=== PATIENT | male | born 1955 | race Two or more races ===

== ENCOUNTER 2024-06-16 13:33 | Emergency (ER) | payer OTHER, SELFPAY ==
[2024-06-16 13:44] VITALS: BP 126/94; PULSE 85; RESP 16; TEMP 36.4; O2SAT 97
--- NOTE | 2024-06-16 13:52 | PD.EDHAND ---
Upper Extremity Injury RME/HPI General Chief Complaint: Hand/Wrist Problems Stated Complaint: left 3rd digit swollen, red Time Seen by Provider: 06/16/24 13:35 Arrival date/time: 06/16/24 13:33 69-year-old male presents the emergency department complains of left hand pain patient reports he suffers from carpal tunnel and does have a follow-up appoint with specialist patient reports no redness or swelling no warmth Limitations: no limitations Related Data Home Medications ?Medication ?Instructions ?Recorded ?Confirmed cetirizine 10 mg capsule (Zyrtec) 10 mg PO QDAY 06/15/19 12/27/23 fluticasone propionate 50 2 spray intranasal QDAY 06/15/19 12/27/23 mcg/actuation nasal spray,suspension (Flonase Allergy Relief) levothyroxine 100 mcg tablet 100 mcg PO QDAY 06/15/19 12/27/23 lisinopril 10 mg tablet 10 mg PO QDAY 06/15/19 12/27/23 metformin 500 mg tablet 500 mg PO QDAY 06/15/19 12/27/23 Previous Rx's ?Medication ?Instructions ?Recorded hydrocodone 5 mg-acetaminophen 325 1 tab PO BID PRN pain #14 tabs 06/16/24 mg tablet Allergies Allergy/AdvReac Type Severity Reaction Status Date / Time aspirin AdvReac Intermediate Gastrointestinal Verified 06/16/24 13:35 Upset meperidine [From Demerol] AdvReac Intermediate Gastrointestinal Verified 06/16/24 13:35 Upset Review of Systems Review of Systems Systems Reviewed: All systems reviewed, normal except as documented Constitutional Constitutional: Reports system reviewed and no additional complaints, except as documented, Denies fever(s) and Denies headache(s) Eyes Eyes: Reports system reviewed and no additional complaints, except as documented and Denies blurry vision ENT Ears, Nose, Mouth, and Throat: Reports system reviewed and no additional complaints, except as documented, Denies headache(s), Denies nasal congestion and Denies nasal discharge Cardiovascular Cardiovascular: Reports system reviewed and no additional complaints, except as documented, Denies chest pain and Denies dyspnea Respiratory Respiratory: Reports system reviewed and no additional complaints, except as documented, Denies chest congestion, Denies cough and Denies dyspnea Gastrointestinal Gastrointestinal: Reports system reviewed and no additional complaints, except as documented and Denies abdominal pain Musculoskeletal Musculoskeletal: Reports system reviewed and no additional complaints, except as documented, Reports arthralgias, Denies deformity and Denies joint swelling Integumentary/Breasts Skin/Breast: Reports system reviewed and no additional complaints, except as documented and Denies rash Neurologic Neurologic: Reports system reviewed and no additional complaints, except as documented, Reports as per HPI and Denies headache(s) Past Medical History Past Medical History NEUROLOGIC: Negative Neurological Disorders or Seizures CARDIAC: Positive Hypercholesterolemia and Hypertension; Negative Cardiac Disorders or Congestive Heart Failure RESPIRATORY: Positive Asthma; Negative Chronic Obstructive Pulmonary Disease (COPD) GASTROINTESTINAL: Negative Gastrointestinal Disorders GENITOURINARY: Negative Genitourinary Disorders or Renal Disease MUSCULOSKELETAL: Negative Musculoskeletal Disorders ENDOCRINE: Positive Endocrine Disorders, Diabetes Mellitus Type 2 and Hypothyroidism; Negative Diabetes Mellitus Type 1 HEMATOLOGIC: Negative Blood Disorders or Sickle Cell Disease OTHER HISTORY: Positive Chicken Pox, Measles and Mumps; Negative Autoimmune Disease, Blood Transfusions or Anesthesia Reactions Surgical History SURGICAL: Negative Cardiac Surgery Social History SMOKING STATUS: Never smoker ED Exam General Limitations: Present no limitations General appearance: Present alert and in no apparent distress Head Head exam: Present atraumatic Eye Eye exam: Present normal appearance, PERRL and EOMI ENT ENT exam: Present normal exam, normal oropharynx and mucous membranes moist Neck Neck exam: Present normal inspection, full ROM and trachea midline Chest Chest inspection: Present normal inspection and symmetric chest wall rise Respiratory Respiratory exam: Present normal lung sounds bilaterally Cardiovascular Cardiovascular exam: Present regular rate, normal rhythm and normal heart sounds Abdominal Exam Abdominal exam: Present soft and normal bowel sounds Extremities Exam Extremities exam: Present full ROM, tenderness (Pain left hand) and normal capillary refill Back Exam Back exam: Present normal inspection and full ROM Neurological Exam Neurological exam: Present alert, oriented X3 and CN II-XII intact Psychiatric Psychiatric exam: Present normal affect and normal mood Skin Skin exam: Present warm, dry, intact and normal color Course Quality Measures none Vital Signs Vital signs: Vital Signs Temperature 97.6 F 06/16/24 13:44 Pulse Rate 85 06/16/24 13:44 Respiratory Rate 16 06/16/24 13:44 Blood Pressure 126/94 H 06/16/24 13:44 Pulse Oximetry (%) 97 06/16/24 13:44 Oxygen Delivery Method Room Air 06/16/24 13:44 O2 saturation 97% room air within the limits Extremity Injury MDM Narrative MDM Narrative:: 69-year-old male presents the emergency department complains of left hand pain patient reports he suffers from carpal tunnel and does have a follow-up appoint with specialist patient reports no redness or swelling no warmth On exam patient well-appearing patient does not appear toxic patient is full range of motion of all digits no evidence of tendon ligamentous injury X-ray or imaging I do not believe is indicated this time patient has no swelling Patient discharged home with [place] instructed to follow-up with specialist for worsening symptoms return immediately Patient data External records reviewed:: [facility] previous records Clinical information provided by:: patient Social determinants that could affect healthcare access:: none Patient has the following chronic illnesses:: See history How is presenting disease/condition affected by chronic disease/condition?: uneffected by Evaluation data The following diagnostics were reviewed and interpreted by me:: other (specify) (N/A) Lab and/or radiology exams considered but not ordered:: Consider not indicated Interpretation Summary: N/A Medications / Prescriptions Medications or Prescriptions considered but not ordered:: Given Medication administrations:: Given Consultations Consultation(s) initiated? (list below): No Diagnosis Upper Extremity Injury Differential Diagnosis: finger sprain and fracture of hand Most likely diagnosis given after review of the tests above:: Hand pain Admission Indicated Admission indicated?: not indicated Admission Request Was there a request for admission?: No Disposition Plan Disposition Plan: Discharge Discharge Attestation Discharge Attestation: The patient and all family members were given an opportunity to ask questions and understood the discharge instructions. Discharge instructions specifically effects, indications for sooner follow up or return to the emergency department, and the expected course of current diagnosis. Patient condition: Stable Discharge Plan Plan Patient Disposition: HOME (Self Care) Disposition Comment: stable Prescriptions/Referrals Prescriptions/Med Rec: New hydrocodone-acetaminophen 5-325 mg tablet 1 tab PO BID MDD 10 PRN (Reason: pain) Qty: 14 0RF No Action metformin 500 mg Tablet 500 mg PO QDAY levothyroxine 100 mcg Tablet 100 mcg PO QDAY lisinopril 10 mg Tablet 10 mg PO QDAY fluticasone propionate [Flonase Allergy Relief] 50 mcg/actuation [place],Suspension 2 spray INTRANASAL QDAY Zyrtec 10 mg Capsule 10 mg PO QDAY Problem List Clinical Impression: Pain in hand Patient/Caregiver Discharge Instructions Education Materials: Parts of a Hand Additional Instructions: Please follow up with your primary care doctor in the next 24-48hrs for any worsening symptoms return here immediately Print Language: Niuean Stand Alone Forms: Kathleen Award Info., Patient Portal Info Letter PA/QUALITY AND RELIABILITY ENGINEER Supervising Physician PA/QUALITY AND RELIABILITY ENGINEER Supervising Physician: Dr Kim
== END 2024-06-16 13:59 | disposition home or self-care (01) ==
PROVIDERS: Emergency Provider Emergency Medicine; PCP Family Medicine
DX: M79.642 Pain in left hand (principal)
CPT/HCPCS: 99281

== ENCOUNTER 2024-07-20 10:57 | Outpatient (RCR) | payer OTHER, SELFPAY ==
--- NOTE | 2024-07-26 13:27 | CTCFLWUP_ITS ---
Patient: ELVIN RYAN : 1955 Page 4 of 6 FOLLOW UP NOTE DATE OF SERVICE: 07/20/2024 NAME: ELVIN RYAN ACCOUNT: [id number] : 1955 AGE: 69 INTERVAL HISTORY: Patient complains of of dizziness. No aggravating or relieving factor. Dizziness is mild and comes on and off. Patient do not want to go to the emergency room. ONCOLOGY HISTORY: DIAGNOSIS: Malignant neoplasm of tonsillar fossa [ICD10] C09.0 DATE OF DIAGNOSIS: 07/25/2021 tonsillar carcinoma STAGE/TNM: Locally advanced p16 positive tonsillar cancer squamous TREATMENT HISTORY: Care?Plan Start?Date Cycle Day Intent CISplatin?40?mg/m*2?+?Radiation?Therapy?-?Primary,?Adj,?Rec?#2 11/27/2021 1 7 Curative?(primary) Mg?sul?2?gr 12/05/2021 1 1 Palliative HISTORY OF PRESENT ILLNESS: Elvin Ryan is a 69-year-old ENG speaking male with following oncology history 2020: Patient started noticing discomfort in the right upper neck. 03/02/2020: Head/neck ultrasound? 07/05/2021: CT scan of the soft tissue of the neck with IV contrast? 07/25/2021: Right neck mass biopsy? 09/29/2021: Mr. Ryan had PET CT scan done at [facility] 10/24/2021: Mr. Ryan had right tonsil biopsy done by Dr. Maurilio Pathak of [place] 11/01/2021: Patient was seen by Dr. Sarah vazquez at cancer center who recommended concurrent chemoradiation therapy with curative intent. 11/27/2021 - 01/26/2022: S/p chemoradiation with weekly cisplatin. 04/28/2022: PET/CT scan? 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 Tobacco?Pack?per?Day:?0 Tobacco?Use?Years:?0 Tobacco?Use:?Denies ETOH?Use:?Socially Drug?Note:?Denies Social?History?Note:?Lives?with? MEDICATIONS: 1. albuterol - As directed 2. Cholest Off - As directed 3. gabapentin - 100 mg 1 tab Three times a day 4. levothyroxine - 100 mcg 1 tab Daily 5. lisinopril - 10 mg 1 tab Daily 6. Singulair - 10 mg 1 tab Daily 7. Xanax - 1 mg 1 tab Every day before sleep 8. ZyrTEC - 10 mg 1 Capsule Daily Medications Last Reconciled by Rocio Dowling MA on 07/20/2024 ALLERGIES: meperidine; ASPIRIN/CAFFEINE REVIEW OF SYSTEMS: A complete 14-point review of systems was performed and is negative except as noted in interval histo ry. PHYSICAL EXAMINATION: VITAL SIGNS: Temperature?99.3, B/P?114/72, Oxygen?Saturation?97% Weight?199?lbs PAIN: 0 - No pain ECOG Performance Status: 0 - Asymptomatic and fully active GENERAL APPEARANCE: Appears well, in no apparent distress, appropriately interactive. HEENT: Normocephalic, no temporal wasting, normal conjunctiva, no scleral icterus, normal hearing, li ps without lesions, neck normal range of motion. CARDIOVASCULAR: Not assessed. PULMONARY: Normal respiratory effort, no respiratory distress or use of accessory muscles, speaking i n full sentences, no tachypnea. EXTREMITIES: No pedal edema or cyanosis. SKIN: Normal skin appearance. NEUROLOGIC: Alert and oriented x4. PSHYCHIATRIC: Appropriate affect, mood normal, behavior normal, intact thought and speech. LABORATORY DATA: I have personally reviewed and interpreted each of the patient?s relevant lab tests, abnormal finding s are below: Date 03/19/24 ??GLUCOSE,RANDOM?(mg/dL) 117?H ??BLOOD?UREA?NITROGEN?(mg/dL) 17 ??CREATININE?(mg/dL) 1.40?H ??SODIUM?(mmol/L) 141 ??POTASSIUM?(mmol/L) 4.3 ??CHLORIDE?(mmol/L) 107 ??CrCl?(CandG)?(ml/min) 61.11 ??AST/SGOT?(Unit/L) 19 ??ALT/SGPT?(Unit/L) 22 ??ALKALINE?PHOSPHATASE?(Unit/L) 81 ??BILIRUBIN,?TOTAL?(mg/dL) 0.5 ??PROTEIN?TOTAL?(gm/dl) 6.6 ??ALBUMIN,?SERUM?(gm/dl) 4.2 ??GLOBULIN?(gm/dl) 2.4 ??ALBUMIN/GLOBULIN?RATIO 1.8 ??CALCIUM,?SERUM?(mg/dL) 10.1 ??CALCIUM?SERUM?(CORRECTED)?(mg/dL) 10.1 ASSESSMENT/PLAN: 1. 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 TREVOR PADMINI stain negative S/p chemoradiation with weekly cisplatin (11/27/2021 - 01/26/2022) The patient is doing very well without any complaints. No clinical evidence of recurrence. PET/CT scan done on 03/15/2023 is negative for recurrence Patient is complaining of lightheadedness. Will get MRI brain to evaluate for any metastatic disease . 2. Type 2 diabetes. Follow-up with PCP 3. Hypertension follow-up with PCP MRI brain with contrast CBC CMP Vitamin B12 and folic acid Iron panel and ferritin RETURN TO CLINIC: RTC in 6 to 8 weeks with the results BILLING AND COMPLIANCE: I reviewed external records from providers outside my specialty as summarized above. I spent a total of 50 minutes on this patient?s care on the day of their visit excluding time spent related to any bi lled procedures. This time includes time spent with the patient as well as time spent documenting in the medical record, reviewing patients records and tests, obtaining history, placing orders, communi cating with other healthcare professionals, counseling the patient, family or caregiver, and/or care coordination for the diagnoses above. Electronically Signed by: Arnulfo Ellis MD T: 1:25 PM CC: Nestor,? PCP: Houston Aggarwal Referring: Houston Aggarwal This document was completed utilizing speech recognition software. Grammatical errors, random word in sertions, pronoun errors, and incomplete sentences are an occasional consequence of this system due t o software limitations, ambient noise, and hardware issues. Any formal questions or concerns about th e content, text or information contained within the body of this dictation should be directly address ed to the provider for clarification.
== END 2024-07-28 23:59 | disposition home or self-care (01) ==
LOC: SCTC 10:57
PROVIDERS: PCP Family Medicine; Referring Provider Family Medicine; Visit Provider Internal Medicine Hematology & Oncology
DX: Z08 Encounter for follow-up examination after completed treatment for malignant neoplasm (principal); Z85.818 Personal history of malignant neoplasm of other sites of lip, oral cavity, and pharynx; Z92.3 Personal history of irradiation; Z92.21 Personal history of antineoplastic chemotherapy; R42 Dizziness and giddiness; E11.9 Type 2 diabetes mellitus without complications; I10 Essential (primary) hypertension
CPT/HCPCS: 99212; G0463

== ENCOUNTER → 2024-08-03 | Outpatient (CLI) | payer OTHER, SELFPAY ==
[2024-08-03 12:05] LABS: Basophils % (Auto) 1 % (0-2.5); Eosinophils # (Auto) 0.1 Thou/mm3 (0.0-0.5); Eosinophils % (Auto) 1 % (0-10); Hematocrit 45.9 % (41.0-53.0); Hemoglobin 15.6 g/dL (13.5-16.0); Immature Granulocytes % (Auto) 0 % (0-0); Immature Granulocytes Auto 0.02 Thou/mm3 (0.00-0.00); Lymphocytes # (Auto) 1.2 Thou/mm3 (1.0-4.8); Lymphocytes % (Auto) 22 % (10-50); Mean Corpuscular Hemoglobin 30.8 pg (25.0-35.0); Mean Corpuscular Volume 91 fL (80-100); Monocytes # (Auto) 0.4 Thou/mm3 (0.0-0.8); Monocytes % (Auto) 6 % (0-12); Neutrophils # (Auto) 3.8 Thou/mm3 (1.8-7.7); Neutrophils % (Auto) 69 % (37-80); Nucleated Red Blood Cell % 0 /100 WBC (0); Platelet Count 257 Thou/mm3 (140-440); RDW Standard Deviation 45.4 fL (35.1-43.9); Red Blood Count 5.07 Miln/mm3 (4.50-5.90); White Blood Count 5.5 Thou/mm3 (3.8-10.6)
[2024-08-03 14:16] LABS: Glucose Estimated Average 146 mg/dL (80-131); Hemoglobin A1C 6.7 % Hgb (4.8-6.0)
[2024-08-03 15:48] LABS: Ferritin 39 ng/mL (10.5-307.3); Total Iron Binding Capacity 397 mcg/dL (250-425)
[2024-08-03 15:58] LABS: Iron 163 mcg/dL (65-175); Percent Iron Saturation 41 % (20-55); Unsaturated Iron Binding 234 (225-295)
[2024-08-03 17:26] LABS: Alanine Aminotransferase 21 U/L (10-49); Albumin, Serum 4.3 gm/dL (3.4-4.8); Alkaline Phosphatase 93 U/L (46-116); Anion Gap 7 (7-16); Aspartate Amino Transferase 19 U/L (0-34); BUN/Creatinine Ratio 15 Ratio (12-20); Bilirubin,Total 0.5 mg/dL (0.3-1.2); Blood Urea Nitrogen 24 mg/dL (9-23); Calcium 9.8 mg/dL (8.3-10.6); Calcium (Corrected) 9.8 mg/dL (8.5-10.1); Carbon Dioxide 28.8 mMol/L (20.0-31.0); Chloride 105 mMol/L (98-107); Creatinine (Component) 1.6 mg/dL (0.6-1.3); Globulin 2.2 gm/dL (2.3-3.5); Glucose 175 mg/dL (74-106); Osmolality,Calculated 289 (275-295); Potassium 4.8 mMol/L (3.4-5.1); Sodium 141 mMol/L (136-145); Total Protein 6.5 gm/dL (5.7-8.2); eGFR 46 See Note
[2024-08-04 17:30] LABS: Folate 18.21 ng/mL (>5.38); Vitamin B12 443 pg/mL (211-911)
== END | disposition home or self-care (01) ==
PROVIDERS: PCP Family Medicine; Referring Provider Internal Medicine Hematology & Oncology; Visit Provider Internal Medicine Hematology & Oncology
DX: R97.20 Elevated prostate specific antigen [PSA] (principal); E03.9 Hypothyroidism, unspecified; E11.9 Type 2 diabetes mellitus without complications; C09.0 Malignant neoplasm of tonsillar fossa
CPT/HCPCS: 36415; 80053; 82607; 82728; 82746; 83036; 83540; 83550; 84436; 84443; 85025

== ENCOUNTER → 2024-08-06 | Outpatient (CLI) | payer OTHER, SELFPAY ==
--- NOTE | 2024-08-06 15:30 | XR_ITS ---
Examination: Bilateral wrists 6 views TECHNIQUE: AP oblique lateral each wrist total 6 views Exam date and time: August 06, 2019 0545 hours INDICATIONS: Bilateral wrist pain 2 months FINDINGS: Minor bony spur formation off the right radial styloid Mild osteoarthritis radiocarpal navicular trapezium first carpometacarpal joints No erosive arthritis No acute fracture No erosive arthritis No avascular necrosis IMPRESSION: Mild bilateral osteoarthritis
--- NOTE | 2024-08-06 15:30 | XR_ITS ---
Examination: Bilateral hands, 6 views. Technique: AP, Oblique, Lateral each hand total 6 views Date and time of exam: August 06, 2024 1455 hours INDICATIONS: Hand pain months FINDINGS: Mild osteopenia No fracture or dislocation involving either hand Minimal osteoarthritis distal interphalangeal joints second through fifth digits and interphalangeal joints first digits Mild osteoarthritis radiocarpal, first carpometacarpal and first metacarpophalangeal joints No erosive arthritis No cortical bone destruction or opaque foreign bodies Impression: Mild bilateral osteoarthritis
== END | disposition home or self-care (01) ==
PROVIDERS: PCP Family Medicine
DX: M19.042 Primary osteoarthritis, left hand (principal); M19.041 Primary osteoarthritis, right hand; M19.032 Primary osteoarthritis, left wrist; M19.031 Primary osteoarthritis, right wrist
CPT/HCPCS: 73110; 73130

== ENCOUNTER 2024-08-18 08:56 | Outpatient (RCR) | payer OTHER, SELFPAY ==
--- NOTE | 2024-08-18 10:21 | CTCFLWUP_ITS ---
[facility] [address] [place], [place] [address] FOLLOW-UP NOTE Date: 08/18/2024 MR#: [id number] Name: ELVIN RYAN : 1955 Dx: C09.0 Malignant neoplasm of tonsillar fossa Patient with locally advanced right tonsillar CA with neck mets stage IV T3 N2 M0 p16 positive right tonsillar CA with neck mets treated with chemoradiation completed 01/26/2022. T3 N2 M0 p16 positive. Underwent 7000 radiation VMAT with concurrent cisplatin completed 01/26/2022. PET scan 03/14/2023 showed no interval mets or recurrent tumor. Being followed by ENT physician Dr. Matthew mejia regularly. CT scan of the neck and chest was ordered by Dr. Pathak 05/28/2024. Chest CT reveale d 2 mm pulm nodule right midlung which was noted nearly [address] neck showed minor symmetrica l thickening right sternocleidomastoid muscle and some stenosis of the right carotid bifurcation orig in Recently saw Dr. Ellis who ordered an MRI of the brain for dizziness. As I see patient today, is experiencing some firmness in the right upper sternocleidomastoid and mass eter region, likely due to radiation effects. No growth in the oral cavity oropharynx and neck noted. A#1. Stage FREDERICK T3 N2 M0 right tonsillar CA p16 positive treated with chemoradiation completed 01/26/2022. A#2. Posttreatment PET scan CT scan ENT eval shows no sign of recurrence. A#[address] scan[address] stenosis of right carotid being followed by primary MD with small right lynnette g nodule unchanged in size in 3 years. A#4. Some persistent dizziness MRI of the brain pending. A#5. Being followed by Dr. Ellis and Dr. Pathak ENT I will see patient again in 6 months.. Cc: Houston Pathak MD Electronically signed by: Bj Smith M.D. 08/18/2024 10:19 AM
== END 2024-08-28 23:59 | disposition home or self-care (01) ==
LOC: SCTC 08:56
PROVIDERS: PCP Family Medicine; Referring Provider Family Medicine; Visit Provider Radiology Therapeutic Radiology
DX: Z08 Encounter for follow-up examination after completed treatment for malignant neoplasm (principal); Z85.818 Personal history of malignant neoplasm of other sites of lip, oral cavity, and pharynx; R91.1 Solitary pulmonary nodule; I65.21 Occlusion and stenosis of right carotid artery; R42 Dizziness and giddiness
CPT/HCPCS: 99213; G0463

== ENCOUNTER → 2024-08-24 | Outpatient (CLI) | payer OTHER, SELFPAY ==
[2024-08-24 14:38] LABS: Alanine Aminotransferase 27 U/L (10-49); Albumin, Serum 4.5 gm/dL (3.4-4.8); Albumin/Globulin Ratio 1.9 (1.2-2.2); Alkaline Phosphatase 91 U/L (46-116); Anion Gap 8 (7-16); Aspartate Amino Transferase 23 U/L (0-34); BUN/Creatinine Ratio 15 Ratio (12-20); Bilirubin,Total 0.5 mg/dL (0.3-1.2); Blood Urea Nitrogen 23 mg/dL (9-23); Calcium 10.3 mg/dL (8.3-10.6); Calcium (Corrected) 10.3 mg/dL (8.5-10.1); Carbon Dioxide 29.7 mMol/L (20.0-31.0); Chloride 105 mMol/L (98-107); Creatinine (Component) 1.5 mg/dL (0.6-1.3); Globulin 2.4 gm/dL (2.3-3.5); Glucose 93 mg/dL (74-106); Osmolality,Calculated 288 (275-295); Potassium 4.7 mMol/L (3.4-5.1); Sodium 143 mMol/L (136-145); Total Protein 6.9 gm/dL (5.7-8.2); eGFR 49 See Note
== END | disposition home or self-care (01) ==
LOC: COPL 13:07
PROVIDERS: PCP Family Medicine; Referring Provider Family Medicine; Visit Provider Radiology Therapeutic Radiology
DX: N18.31 Chronic kidney disease, stage 3a (principal); C09.0 Malignant neoplasm of tonsillar fossa
CPT/HCPCS: 36415; 80053

== ENCOUNTER → 2024-09-16 | Outpatient (CLI) | payer OTHER, SELFPAY ==
--- NOTE | 2024-09-16 08:00 | XR_ITS ---
Examination: MRI brain with intravenous contrast TECHNIQUE: Multiple axial sagittal coronal MRI images post intravenous ministration 3 cc gadolinium Exam date and time: The liver 2024 0826 hours INDICATIONS: Diagnosis cancer of the tonsil 2021, episodes of dizziness one month FINDINGS: Ventricles are not enlarged No mass effect upon the ventricular system. No effacement cortical sulcal markings No abnormal enhancing cerebellar or cerebral lesions Pituitary is not enlarged There is no displacement of the optic chiasm Prepontine interhemispheric fissures are unremarkable IMPRESSION: No abnormal enhancing cerebellar or cerebral lesions
== END | disposition home or self-care (01) ==
LOC: SMRI 07:55
PROVIDERS: PCP Family Medicine; Referring Provider Internal Medicine Hematology & Oncology; Visit Provider Internal Medicine Hematology & Oncology
DX: C09.0 Malignant neoplasm of tonsillar fossa (principal)
CPT/HCPCS: 70552; A9579

== ENCOUNTER 2024-09-30 14:28 | Outpatient (RCR) | payer OTHER, SELFPAY ==
--- NOTE | 2024-09-30 15:06 | CTCFLWUP_ITS ---
Patient: ELVIN RYAN : 1955 Page 2 of 2 FOLLOW UP NOTE DATE OF SERVICE: 09/30/2024 NAME: ELVIN RYAN ACCOUNT: [id number] : 1955 AGE: 69 INTERVAL HISTORY: Patient is doing well. 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 03/02/2020: Head/neck ultrasound? 07/05/2021: CT scan of the soft tissue of the neck with IV contrast? 07/25/2021: Right neck mass biopsy? 09/29/2021: Mr. Ryan had PET CT scan done at [facility] 10/24/2021: Mr. Ryan had right tonsil biopsy done by Dr. Maurilio Pathak of [place] 11/01/2021: Patient was seen by Dr. Sarah vazquez at cancer center who recommended concurrent chemoradiation therapy with curative intent. 11/27/2021 - 01/26/2022: S/p chemoradiation with weekly cisplatin. 04/28/2022: PET/CT scan? 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 Tobacco?Pack?per?Day:?0 Tobacco?Use?Years:?0 Tobacco?Use:?Denies ETOH?Use:?Socially Drug?Note:?Denies Social?History?Note:?Lives?with? MEDICATIONS: 1. albuterol - As directed 2. Flonase - 50 mcg/actuation As directed 3. gabapentin - 100 mg 1 tab Three times a day 4. levothyroxine - 100 mcg 1 tab Daily 5. lisinopril - 10 mg 1 tab Daily 6. Singulair - 10 mg 1 tab Daily 7. Xanax - 1 mg 1 tab Every day before sleep 8. ZyrTEC - 10 mg 1 Capsule Daily Medications Last Reconciled by Rocio Dowling MA on 09/30/2024 ALLERGIES: meperidine; ASPIRIN/CAFFEINE REVIEW OF SYSTEMS: A complete 14-point review of systems was performed and is negative except as noted in interval history. PHYSICAL EXAMINATION: VITAL SIGNS: B/P?156/89, Oxygen?Saturation?97% Weight?200?lbs ECOG Performance Status: 0 - Asymptomatic and fully active GENERAL APPEARANCE: Appears well, in no apparent distress, appropriately interactive. HEENT: Normocephalic, no temporal wasting, normal conjunctiva, no scleral icterus, normal hearing, lips without lesions, neck normal range of motion. CARDIOVASCULAR: Not assessed. PULMONARY: Normal respiratory effort, no respiratory distress or use of accessory muscles, speaking in full sentences, no tachypnea. EXTREMITIES: No pedal edema or cyanosis. SKIN: Normal skin appearance. NEUROLOGIC: Alert and oriented x4. PSHYCHIATRIC: Appropriate affect, mood normal, behavior normal, intact thought and speech. LABORATORY DATA: I have personally reviewed and interpreted each of the patient?s relevant lab tests, abnormal findings are below: Date 08/24/24 ??GLUCOSE,RANDOM?(mg/dL) 93 ??BLOOD?UREA?NITROGEN?(mg/dL) 23 ??CREATININE?(mg/dL) 1.50?H ??SODIUM?(mmol/L) 143 ??POTASSIUM?(mmol/L) 4.7 ??CHLORIDE?(mmol/L) 105 ??CrCl?(CandG)?(ml/min) 58.25 ??AST/SGOT?(Unit/L) 23 ??ALT/SGPT?(Unit/L) 27 ??ALKALINE?PHOSPHATASE?(Unit/L) 91 ??BILIRUBIN,?TOTAL?(mg/dL) 0.5 ??PROTEIN?TOTAL?(gm/dl) 6.9 ??ALBUMIN,?SERUM?(gm/dl) 4.5 ??GLOBULIN?(gm/dl) 2.4 ??ALBUMIN/GLOBULIN?RATIO 1.9 ??CALCIUM,?SERUM?(mg/dL) 10.3 ??CALCIUM?SERUM?(CORRECTED)?(mg/dL) 10.3?H ASSESSMENT/PLAN: 1. 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 TREVOR PADMINI stain negative S/p chemoradiation with weekly cisplatin (11/27/2021 - 01/26/2022) The patient is doing very well without any complaints. No clinical evidence of recurrence. PET/CT scan done on 03/15/2023 is negative for recurrence MRI brain is negative PET CT to evaluate for malignancy recurrence . patient s psa is elavted but biopsy was negative so will follow it / 2. Type 2 diabetes. Follow-up with PCP 3. Hypertension follow-up with PCP ORDERS: Cbc,cmp,psa , pet scan RETURN TO CLINIC: 6 months BILLING AND COMPLIANCE: I reviewed external records from providers outside my specialty as summarized above. I spent a total of 50 minutes on this patient?s care on the day of their visit excluding time spent related to any billed procedures. This time includes time spent with the patient as well as time spent documenting in the medical record, reviewing patients records and tests, obtaining history, placing orders, communicating with other healthcare professionals, counseling the patient, family or caregiver, and/or care coordination for the diagnoses above. Electronically Signed by: Arnulfo Ellis MD T: 3:04 PM CC: Nestor? PCP: Houston Aggarwal Referring: Houston Aggarwal This document was completed utilizing speech recognition software. Grammatical errors, random word insertions, pronoun errors, and incomplete sentences are an occasional consequence of this system due to software limitations, ambient noise, and hardware issues. Any formal questions or concerns about the content, text or information contained within the body of this dictation should be directly addressed to the provider for clarification.
== END 2024-10-26 23:59 | disposition home or self-care (01) ==
LOC: SCTC 14:28
PROVIDERS: PCP Family Medicine; Referring Provider Family Medicine; Visit Provider Internal Medicine Hematology & Oncology
DX: Z08 Encounter for follow-up examination after completed treatment for malignant neoplasm (principal); Z85.818 Personal history of malignant neoplasm of other sites of lip, oral cavity, and pharynx; E11.9 Type 2 diabetes mellitus without complications; I10 Essential (primary) hypertension
CPT/HCPCS: 99212; G0463

== ENCOUNTER → 2024-10-12 | Outpatient (CLI) | payer OTHER, SELFPAY ==
[2024-10-12 12:21] LABS: Basophils % (Auto) 0 % (0-2.5); Eosinophils % (Auto) 1 % (0-10); Hematocrit 46.9 % (41.0-53.0); Hemoglobin 15.6 g/dL (13.5-16.0); Immature Granulocytes % (Auto) 1 % (0-0); Immature Granulocytes Auto 0.04 Thou/mm3 (0.00-0.00); Lymphocytes # (Auto) 0.9 Thou/mm3 (1.0-4.8); Lymphocytes % (Auto) 11 % (10-50); Mean Corpuscular HGB Conc 33.3 g/dl (31.0-37.0); Mean Corpuscular Hemoglobin 30.6 pg (25.0-35.0); Mean Corpuscular Volume 92 fL (80-100); Monocytes # (Auto) 0.5 Thou/mm3 (0.0-0.8); Monocytes % (Auto) 5 % (0-12); Neutrophils # (Auto) 6.9 Thou/mm3 (1.8-7.7); Neutrophils % (Auto) 82 % (37-80); Nucleated Red Blood Cell % 0 /100 WBC (0); Platelet Count 209 Thou/mm3 (140-440); RDW Standard Deviation 46.9 fL (35.1-43.9); White Blood Count 8.4 Thou/mm3 (3.8-10.6)
[2024-10-12 12:39] LABS: Prostate Specific Antigen 14.25 ng/mL (0-4.00); T4 (Thyroxine) 9.4 mcg/dL (4.5-10.9)
[2024-10-12 12:41] LABS: Alanine Aminotransferase 24 U/L (10-49); Albumin, Serum 4.1 gm/dL (3.4-4.8); Albumin/Globulin Ratio 1.7 (1.2-2.2); Alkaline Phosphatase 99 U/L (46-116); Anion Gap 11 (7-16); Aspartate Amino Transferase 11 U/L (0-34); BUN/Creatinine Ratio 14 Ratio (12-20); Bilirubin,Total 0.5 mg/dL (0.3-1.2); Blood Urea Nitrogen 18 mg/dL (9-23); Calcium 9.5 mg/dL (8.3-10.6); Calcium (Corrected) 9.5 mg/dL (8.5-10.1); Chloride 106 mMol/L (98-107); Creatinine (Component) 1.3 mg/dL (0.6-1.3); Globulin 2.4 gm/dL (2.3-3.5); Glucose 119 mg/dL (74-106); Osmolality,Calculated 286 (275-295); Potassium 4.3 mMol/L (3.4-5.1); Sodium 142 mMol/L (136-145); Thyroid Stimulating Hormone 2.94 uIU/mL (0.55-4.78); Total Protein 6.5 gm/dL (5.7-8.2); eGFR 59 See Note
== END | disposition home or self-care (01) ==
LOC: COPL 11:11
PROVIDERS: PCP Family Medicine; Referring Provider Family Medicine; Visit Provider Family Medicine
DX: C09.0 Malignant neoplasm of tonsillar fossa (principal); I12.9 Hypertensive chronic kidney disease with stage 1 through stage 4 chronic kidney disease, or unspecified chronic kidney disease; E03.9 Hypothyroidism, unspecified; N18.31 Chronic kidney disease, stage 3a; N40.1 Benign prostatic hyperplasia with lower urinary tract symptoms
CPT/HCPCS: 36415; 80053; 84153; 84436; 84443; 85025

== ENCOUNTER → 2024-10-13 | Outpatient (CLI) | payer OTHER, SELFPAY ==
--- NOTE | 2024-10-13 14:45 | XR_ITS ---
EXAMINATION: PET/CT FUSION SKULL TO THIGH EXAM DATE AND TIME: October 13, 2024 1519 hours Comparison PET/CT scan March 14, 2023, CT chest May 28, 2024, CT soft tissue neck May 28, 2024 INDICATIONS: Diagnosis tonsillar cancer restaging post treatment CTDI:vol (mGy) 7.29 DLP: (mGycm) 756.53 PROCEDURE: 16.6 mCi FDG was administered intravenously To allow for distribution and uptake of radiotracer, the patient was allowed to rest quietly in a shielded room. Imaging was performed on an integrated 16-slice PET/CT scanner, with scanning from the skull base to the mid thigh. Serum blood glucose at the time of the injection was measured 88 mg/dL. CT scanning was performed without oral or intravenous contrast material. FINDINGS: Head and Neck: There is no jairo hypermetabolism in the neck. The visualized portions of the brain are normal in appearance on CT. Chest: There is no jairo hypermetabolism in the chest. There are no pulmonary nodules. Abdomen and Pelvis: There is no jairo hypermetabolism in retroperitoneal or pelvic chains. The spleen is normal in size and FDG avidity. Musculoskeletal: Marrow uptake is within normal range. IMPRESSION: No interval metastatic disease Please see the CT chest report May 28, 2024 indicating 6 month follow-up CT chest to document stability of 2 mm pulmonary nodule noted on this high resolution CT chest study
== END | disposition home or self-care (01) ==
PROVIDERS: Referring Provider Internal Medicine Hematology & Oncology; Visit Provider Internal Medicine Hematology & Oncology
DX: R91.1 Solitary pulmonary nodule (principal); C09.0 Malignant neoplasm of tonsillar fossa
CPT/HCPCS: 78815; A9552

== ENCOUNTER → 2024-10-19 | Outpatient (BNVA) | payer OTHER, SELFPAY | END | disposition home or self-care (01) | PROVIDERS: PCP Family Medicine; Referring Provider Family Medicine; Visit Provider Urology | DX: N40.1 Benign prostatic hyperplasia with lower urinary tract symptoms (principal); N13.8 Other obstructive and reflux uropathy; R97.20 Elevated prostate specific antigen [PSA]; E11.9 Type 2 diabetes mellitus without complications; I10 Essential (primary) hypertension; E78.00 Pure hypercholesterolemia, unspecified; E03.9 Hypothyroidism, unspecified | CPT/HCPCS: 81003; 99212; G0463 ==

== ENCOUNTER → 2024-11-26 | Outpatient (CLI) | payer OTHER, SELFPAY ==
[2024-11-26 13:19] LABS: Basophils % (Auto) 1 % (0-2.5); Eosinophils # (Auto) 0.1 Thou/mm3 (0.0-0.5); Eosinophils % (Auto) 1 % (0-10); Hemoglobin 15.9 g/dL (13.5-16.0); Immature Granulocytes % (Auto) 0 % (0-0); Immature Granulocytes Auto 0.02 Thou/mm3 (0.00-0.00); Lymphocytes # (Auto) 1.1 Thou/mm3 (1.0-4.8); Lymphocytes % (Auto) 21 % (10-50); Mean Corpuscular HGB Conc 35.3 g/dl (31.0-37.0); Mean Corpuscular Hemoglobin 31.4 pg (25.0-35.0); Mean Corpuscular Volume 89 fL (80-100); Monocytes # (Auto) 0.5 Thou/mm3 (0.0-0.8); Monocytes % (Auto) 10 % (0-12); Neutrophils # (Auto) 3.4 Thou/mm3 (1.8-7.7); Neutrophils % (Auto) 67 % (37-80); Nucleated Red Blood Cell % 0 /100 WBC (0); Platelet Count 227 Thou/mm3 (140-440); RDW Standard Deviation 46.5 fL (35.1-43.9); Red Blood Count 5.07 Miln/mm3 (4.50-5.90)
[2024-11-26 13:23] LABS: Parathyroid Hormone Intact 87.8 pg/ml (18.5-88.0)
[2024-11-26 13:24] LABS: Creatinine,Random Urine 20 mg/dL (30-125); Protein Total, Random Urine < 6 mg/dL (1-14)
[2024-11-26 13:25] LABS: Albumin, Serum 4.2 gm/dL (3.4-4.8); Anion Gap 9 (7-16); BUN/Creatinine Ratio 9 Ratio (12-20); Blood Urea Nitrogen 13 mg/dL (9-23); Calcium 9.2 mg/dL (8.3-10.6); Calcium (Corrected) 9.2 mg/dL (8.5-10.1); Carbon Dioxide 24.1 mMol/L (20.0-31.0); Chloride 108 mMol/L (98-107); Creatinine (Component) 1.4 mg/dL (0.6-1.3); Glucose 164 mg/dL (74-106); Osmolality,Calculated 285 (275-295); Phosphorous 2.5 mg/dL (2.4-5.1); Potassium 3.8 mMol/L (3.4-5.1); Sodium 141 mMol/L (136-145); eGFR 54 See Note
[2024-11-26 13:28] LABS: Prostate Specific Antigen 13.31 ng/mL (0-4.00); Vitamin D 25 Hydroxy Total 29.7 ng/mL (7.3-40.2)
== END | disposition home or self-care (01) ==
LOC: COPL 11:39
PROVIDERS: PCP Family Medicine; Referring Provider Internal Medicine; Visit Provider Urology
DX: R97.20 Elevated prostate specific antigen [PSA] (principal); I12.9 Hypertensive chronic kidney disease with stage 1 through stage 4 chronic kidney disease, or unspecified chronic kidney disease; E11.22 Type 2 diabetes mellitus with diabetic chronic kidney disease; N18.31 Chronic kidney disease, stage 3a; N40.0 Benign prostatic hyperplasia without lower urinary tract symptoms
CPT/HCPCS: 36415; 80069; 82306; 82570; 83970; 84153; 84156; 85025

== ENCOUNTER 2025-02-16 09:51 | Outpatient (RCR) | payer OTHER, SELFPAY ==
--- NOTE | 2025-02-16 11:02 | CTCFLWUP_ITS ---
Johnathon Lyons [facility] [address] [place], [place] [address] FOLLOW-UP NOTE Date: 02/16/2025 MR#: [id number] Name: ELVIN RYAN : 1955 Dx: C09.0 Malignant neoplasm of tonsillar fossa Identification. 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 Underwent 7000 cGy via VMAT with concurrent cisplatin. Completed 01/26/2022. Posttreatment PET 03/14/2023 no interval mets disease or recurrent tumor. Chest CT ordered by primary care physician 05/28/2024 2 mm pulmonary nodule with baseline recommended 6 months without contrast. Had MRI of the brain 09/16/2024 unremarkable. Repeat PET 10/13/2024 no interval met disease. Patient states that his taste buds and dryness is a bit better than before and he is also adapting well. As I see patient today, he appears well with no sign of recurrence in the oral cavity oropharynx larynx or neck. A#1. P16 positive T3 N2c right tonsillar CA with neck mets chemoradiation completed 01/26/2022. complete response with no sign of recurrence thus far. #2. Dr. Houston Aggarwal will see patient shortly regarding the tiny pulmonary nodule noted on chest CT that she had ordered previously on 05/28/2024. #3. Being followed by urologist Dr. Ulloa for elevated PSA. #4 I will see patient again in 6 months.. Cc: Houston Aggarwal MD Electronically signed by: Bj Smith M.D. 02/16/2025 11:00 AM
== END 2025-02-25 23:59 | disposition home or self-care (01) ==
LOC: SCTC 09:51
PROVIDERS: PCP Family Medicine; Referring Provider Family Medicine; Visit Provider Radiology Therapeutic Radiology
DX: Z08 Encounter for follow-up examination after completed treatment for malignant neoplasm (principal); Z85.818 Personal history of malignant neoplasm of other sites of lip, oral cavity, and pharynx; R91.1 Solitary pulmonary nodule; R97.20 Elevated prostate specific antigen [PSA]; Z92.3 Personal history of irradiation
CPT/HCPCS: 99213; G0463

== ENCOUNTER → 2025-02-16 | Outpatient (BNVA) | payer OTHER, SELFPAY | END | disposition home or self-care (01) | PROVIDERS: PCP Family Medicine; Referring Provider Family Medicine; Visit Provider Urology | DX: N40.1 Benign prostatic hyperplasia with lower urinary tract symptoms (principal); N13.8 Other obstructive and reflux uropathy; E11.9 Type 2 diabetes mellitus without complications; I10 Essential (primary) hypertension; R97.20 Elevated prostate specific antigen [PSA]; E78.00 Pure hypercholesterolemia, unspecified | CPT/HCPCS: 99212; G0463 ==

== ENCOUNTER → 2025-02-26 | Outpatient (CLI) | payer OTHER, SELFPAY ==
[2025-02-26 11:37] LABS: Basophils # (Auto) 0.0 Thou/mm3 (0.0-0.2); Basophils % (Auto) 1 % (0-2.5); Eosinophils # (Auto) 0.1 Thou/mm3 (0.0-0.5); Eosinophils % (Auto) 1 % (0-10); Hematocrit 48.0 % (41.0-53.0); Hemoglobin 16.2 g/dL (13.5-16.0); Immature Granulocytes Auto 0.01 Thou/mm3 (0.00-0.00); Lymphocytes # (Auto) 1.2 Thou/mm3 (1.0-4.8); Lymphocytes % (Auto) 17 % (10-50); Mean Corpuscular HGB Conc 33.8 g/dl (31.0-37.0); Mean Corpuscular Hemoglobin 31.2 pg (25.0-35.0); Mean Corpuscular Volume 92 fL (80-100); Monocytes # (Auto) 0.5 Thou/mm3 (0.0-0.8); Monocytes % (Auto) 7 % (0-12); Neutrophils # (Auto) 4.9 Thou/mm3 (1.8-7.7); Neutrophils % (Auto) 74 % (37-80); Nucleated Red Blood Cell # 0.00 Thou/mm3 (0.00-0.00); Nucleated Red Blood Cell % 0 /100 WBC (0); Platelet Count 228 Thou/mm3 (140-440); RDW Standard Deviation 47.3 fL (35.1-43.9); Red Blood Count 5.20 Miln/mm3 (4.50-5.90); White Blood Count 6.7 Thou/mm3 (3.8-10.6)
[2025-02-26 11:38] LABS: Glucose Estimated Average 137 mg/dL (80-131); Hemoglobin A1C 6.4 % Hgb (4.8-6.0)
[2025-02-26 11:54] LABS: Alanine Aminotransferase 45 U/L (10-49); Albumin, Serum 4.5 gm/dL (3.4-4.8); Albumin/Globulin Ratio 1.7 (1.2-2.2); Alkaline Phosphatase 89 U/L (46-116); Anion Gap 12 (7-16); Aspartate Amino Transferase 34 U/L (0-34); BUN/Creatinine Ratio 8 Ratio (12-20); Bilirubin,Total 0.7 mg/dL (0.3-1.2); Blood Urea Nitrogen 12 mg/dL (9-23); Calcium 9.7 mg/dL (8.3-10.6); Calcium (Corrected) 9.7 mg/dL (8.5-10.1); Carbon Dioxide 28.5 mMol/L (20.0-31.0); Chloride 103 mMol/L (98-107); Creatinine (Component) 1.5 mg/dL (0.6-1.3); Globulin 2.6 gm/dL (2.3-3.5); Glucose 142 mg/dL (74-106); Osmolality,Calculated 286 (275-295); Phosphorous 2.7 mg/dL (2.4-5.1); Potassium 4.2 mMol/L (3.4-5.1); Sodium 143 mMol/L (136-145); Total Protein 7.1 gm/dL (5.7-8.2); eGFR 49 See Note
== END | disposition home or self-care (01) ==
LOC: COPL 10:44
PROVIDERS: PCP Family Medicine; Referring Provider Family Medicine; Visit Provider Internal Medicine
DX: I12.9 Hypertensive chronic kidney disease with stage 1 through stage 4 chronic kidney disease, or unspecified chronic kidney disease (principal); E11.22 Type 2 diabetes mellitus with diabetic chronic kidney disease; N18.31 Chronic kidney disease, stage 3a; E03.9 Hypothyroidism, unspecified; N40.1 Benign prostatic hyperplasia with lower urinary tract symptoms; R97.20 Elevated prostate specific antigen [PSA]; N40.0 Benign prostatic hyperplasia without lower urinary tract symptoms
CPT/HCPCS: 36415; 80053; 83036; 84100; 85025

== ENCOUNTER 2025-04-01 10:45 | Outpatient (RCR) | payer OTHER, SELFPAY ==
--- NOTE | 2025-04-01 11:22 | CTCFLWUP_ITS ---
Patient: ELVIN RYAN : 1955 Page 4 of 6 FOLLOW UP NOTE DATE OF SERVICE: 04/01/2025 NAME: ELVIN RYAN ACCOUNT: [id number] : 1955 AGE: 69 INTERVAL HISTORY: Patient is doing well. Have dry mouth . patient follows with ENT . ONCOLOGY HISTORY:?[facility] Hx? DIAGNOSIS: Malignant neoplasm of tonsillar fossa [ICD10] C09.0 DATE OF DIAGNOSIS: 07/25/2021 tonsillar carcinoma STAGE/TNM: Locally advanced p16 positive tonsillar cancer squamous TREATMENT HISTORY: Care?Plan Start?Date Cycle Day Intent Mg?sul?2?gr 12/05/2021 1 1 Palliative CISplatin?40?mg/m*2?+?Radiation?Therapy?-?Primary,?Adj,?Rec?#2 11/27/2021 1 7 Curative?(primary) HISTORY OF PRESENT ILLNESS: Elvin Ryan is a 69-year-old ENG speaking male with following oncology history 2020: Patient started noticing discomfort in the right upper neck. 03/02/2020: Head/neck ultrasound? 07/05/2021: CT scan of the soft tissue of the neck with IV contrast? 07/25/2021: Right neck mass biopsy? 09/29/2021: Mr. Ryan had PET CT scan done at [facility] 10/24/2021: Mr. Ryan had right tonsil biopsy done by Dr. Maurilio Pathak of [place] 11/01/2021: Patient was seen by Dr. Sarah vazquez at cancer center who recommended concurrent chemoradiation therapy with curative intent. 11/27/2021 - 01/26/2022: S/p chemoradiation with weekly cisplatin. 04/28/2022: PET/CT scan? 03/15/2023: PET/CT scan OTHER MEDICAL HISTORY/CONDITIONS: Diabetes HTN Hypothyroidism Asthma Right shoulder surgery - 1979's Appendectomy - 1967 Right groin cyst removed- 15 yrs ago FAMILY HISTORY: Father:?BRAIN SOCIAL HISTORY: Occupational?History:?RETIRED [employer] Education?Level:?College Graduate, 2 year degree Marital?Status:? Tobacco?Pack?per?Day:?0 Tobacco?Use?Years:?0 Tobacco?Use:?Denies ETOH?Use:?Socially Drug?Note:?Denies Social?History?Note:?Lives?with? MEDICATIONS: 1. albuterol - As directed 2. ALPRAZolam - 1 mg 1 tab Every day before sleep 3. Flonase - 50 mcg/actuation As directed 4. gabapentin - 100 mg 1 tab Three times a day 5. levothyroxine - 100 mcg 1 tab Daily 6. Renavit Multivitamin - 0.8 mg 1 tab Daily 7. Singulair - 10 mg 1 tab Daily 8. tamsulosin - 0.4 mg 1 Capsule Daily 9. ZyrTEC - 10 mg 1 Capsule Daily?Palabra Meds? Medications Last Reconciled by Rocio Dowling MA on 04/01/2025 ALLERGIES: meperidine; ASPIRIN/CAFFEINE REVIEW OF SYSTEMS: A complete 14-point review of systems was performed and is negative except as noted in interval history. PHYSICAL EXAMINATION:?[facility] PE? VITAL SIGNS: Temperature?99, B/P?142/72, Oxygen?Saturation?97% Weight?202?lbs PAIN: 0 - No pain ECOG Performance Status: 0 - Asymptomatic and fully active GENERAL APPEARANCE: Appears well, in no apparent distress, appropriately interactive. HEENT: Normocephalic, no temporal wasting, normal conjunctiva, no scleral icterus, normal hearing, lips without lesions, neck normal range of motion. CARDIOVASCULAR: Not assessed. PULMONARY: Normal respiratory effort, no respiratory distress or use of accessory muscles, speaking in full sentences, no tachypnea. EXTREMITIES: No pedal edema or cyanosis. SKIN: Normal skin appearance. NEUROLOGIC: Alert and oriented x4. PSHYCHIATRIC: Appropriate affect, mood normal, behavior normal, intact thought and speech. LABORATORY DATA: I have personally reviewed and interpreted each of the patient?s relevant lab tests, abnormal findings are below: Date 11/26/24 02/26/25 ??WHITE?BLOOD?COUNT?(Thou/mm3) 5.0 6.7 ??RED?BLOOD?COUNT?(Miln/mm3) 5.07 5.20 ??HEMOGLOBIN?(gm/dl) 15.9 16.2?H ??HEMATOCRIT?(%) 45.0 48.0 ??PLATELET?COUNT?(Thou/mm3) 227 228 ??NEUTROPHILS?%,?AUTO?(%) 67 74 ??LYMPH?%,?AUTO?(%) 21 17 ??NEUTROPHILS,?AUTO?(Thou/mm3) 3.4 4.9 ??GLUCOSE,RANDOM?(mg/dL) 164?H 142?H ??BLOOD?UREA?NITROGEN?(mg/dL) 13 12 ??CREATININE?(mg/dL) 1.40?H 1.50?H ??SODIUM?(mmol/L) 141 143 ??POTASSIUM?(mmol/L) 3.8 4.2 ??CHLORIDE?(mmol/L) 108?H 103 ??CrCl?(CandG)?(ml/min) 62.10 59.41 ??AST/SGOT?(Unit/L) ? 34 ??ALT/SGPT?(Unit/L) ? 45 ??ALKALINE?PHOSPHATASE?(Unit/L) ? 89 ??BILIRUBIN,?TOTAL?(mg/dL) ? 0.7 ??PROTEIN?TOTAL?(gm/dl) ? 7.1 ??ALBUMIN,?SERUM?(gm/dl) 4.2 4.5 ??GLOBULIN?(gm/dl) ? 2.6 ??ALBUMIN/GLOBULIN?RATIO ? 1.7 ??CALCIUM,?SERUM?(mg/dL) 9.2 9.7 ??CALCIUM?SERUM?(CORRECTED)?(mg/dL) 9.2 9.7 ASSESSMENT/PLAN:?Adelina Ellis Assessment/Plan? 1. 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 TREVOR PADMINI stain negative S/p chemoradiation with weekly cisplatin (11/27/2021 - 01/26/2022) The patient is doing very well without any complaints. No clinical evidence of recurrence. PET/CT scan done on 03/15/2023 is negative for recurrence MRI brain is negative Patient was found to have elevated PSA and is followed by urologist. Patient was told that he has no prostate cancer. PET CT to evaluate for malignancy recurrence . Type 2 diabetes. Follow-up with PCP 2. Hypertension follow-up with PCP ORDERS: Order # Description [id number] PSA + Comprehensive Metabolic Panel - 12 + CBC with Auto Diff [id number] MD Follow Up 6 Month RETURN TO CLINIC: I reviewed the diagnosis, prognosis, and recommended treatment/procedure options with the patient (and/or their legal credit representative), including the potential benefits, risks, side effects and alternative therapies. We also discussed the option of no treatment and the possibility of clinical trial participation, if applicable. All questions were addressed, and they demonstrated understanding. They provided informed consent to proceed with the proposed plan of care. BILLING AND COMPLIANCE: I reviewed external records from providers outside my specialty as summarized above. I spent a total of 50 minutes on this patient?s care on the day of their visit excluding time spent related to any billed procedures. This time includes time spent with the patient as well as time spent documenting in the medical record, reviewing patients records and tests, obtaining history, placing orders, communicating with other healthcare professionals, counseling the patient, family or caregiver, and/or care coordination for the diagnoses above. Electronically Signed by: Arnulfo Ellis MD T: 11:20 AM CC: KELSIE Baez PCP: Houston Aggarwal Referring: Houston Aggarwal This document was completed utilizing speech recognition software. Grammatical errors, random word insertions, pronoun errors, and incomplete sentences are an occasional consequence of this system due to software limitations, ambient noise, and hardware issues. Any formal questions or concerns about the content, text or information contained within the body of this dictation should be directly addressed to the provider for clarification.
== END 2025-04-27 23:59 | disposition home or self-care (01) ==
LOC: SCTC 10:45
PROVIDERS: PCP Family Medicine; Referring Provider Family Medicine; Visit Provider Internal Medicine Hematology & Oncology
DX: Z08 Encounter for follow-up examination after completed treatment for malignant neoplasm (principal); Z85.818 Personal history of malignant neoplasm of other sites of lip, oral cavity, and pharynx; Z92.3 Personal history of irradiation; Z92.21 Personal history of antineoplastic chemotherapy; R97.20 Elevated prostate specific antigen [PSA]; E11.9 Type 2 diabetes mellitus without complications; I10 Essential (primary) hypertension
CPT/HCPCS: 99212; G0463

== ENCOUNTER → 2025-07-07 | Outpatient (CLI) | payer OTHER, SELFPAY ==
[2025-07-07 11:30] LABS: Basophils # (Auto) 0.1 Thou/mm3 (0.0-0.2); Basophils % (Auto) 1 % (0-2.5); Eosinophils # (Auto) 0.1 Thou/mm3 (0.0-0.5); Eosinophils % (Auto) 1 % (0-10); Hematocrit 50.3 % (41.0-53.0); Hemoglobin 16.7 g/dL (13.5-16.0); Immature Granulocytes Auto 0.03 Thou/mm3 (0.00-0.00); Lymphocytes # (Auto) 1.0 Thou/mm3 (1.0-4.8); Lymphocytes % (Auto) 17 % (10-50); Mean Corpuscular HGB Conc 33.2 g/dl (31.0-37.0); Mean Corpuscular Hemoglobin 30.6 pg (25.0-35.0); Mean Corpuscular Volume 92 fL (80-100); Monocytes # (Auto) 0.3 Thou/mm3 (0.0-0.8); Monocytes % (Auto) 5 % (0-12); Neutrophils # (Auto) 4.5 Thou/mm3 (1.8-7.7); Neutrophils % (Auto) 75 % (37-80); Nucleated Red Blood Cell # 0.00 Thou/mm3 (0.00-0.00); Nucleated Red Blood Cell % 0 /100 WBC (0); Platelet Count 276 Thou/mm3 (140-440); RDW Standard Deviation 48.6 fL (35.1-43.9); Red Blood Count 5.45 Miln/mm3 (4.50-5.90); White Blood Count 6.0 Thou/mm3 (3.8-10.6)
[2025-07-07 11:44] LABS: Alanine Aminotransferase 40 U/L (10-49); Albumin, Serum 5.0 gm/dL (3.4-4.8); Albumin/Globulin Ratio 1.8 (1.2-2.2); Alkaline Phosphatase 88 U/L (46-116); Anion Gap 10 (7-16); Aspartate Amino Transferase 31 U/L (0-34); BUN/Creatinine Ratio 8 Ratio (12-20); Bilirubin,Total 0.6 mg/dL (0.3-1.2); Blood Urea Nitrogen 12 mg/dL (9-23); Calcium 10.2 mg/dL (8.3-10.6); Calcium (Corrected) 10.2 mg/dL (8.5-10.1); Carbon Dioxide 28.5 mMol/L (20.0-31.0); Chloride 107 mMol/L (98-107); Creatinine (Component) 1.6 mg/dL (0.6-1.3); Globulin 2.8 gm/dL (2.3-3.5); Glucose 121 mg/dL (74-106); Osmolality,Calculated 289 (275-295); Potassium 4.8 mMol/L (3.4-5.1); Sodium 145 mMol/L (136-145); Total Protein 7.8 gm/dL (5.7-8.2); eGFR 45 See Note
[2025-07-07 12:32] LABS: Prostate Specific Antigen 18.28 ng/mL (0-4.00)
== END | disposition home or self-care (01) ==
LOC: SCTO 10:20
PROVIDERS: PCP Family Medicine; Referring Provider Internal Medicine Hematology & Oncology; Visit Provider Internal Medicine Hematology & Oncology
DX: C09.0 Malignant neoplasm of tonsillar fossa (principal); R97.20 Elevated prostate specific antigen [PSA]
CPT/HCPCS: 36415; 80053; 84153; 85025